=== PATIENT | female | born 1935 | race Caucasian/White ===

== ENCOUNTER 2019-01-19 08:44 | Emergency (ER) | payer MEDICARE ==
[2019-01-19 09:40] VITALS: BP 126/63
--- NOTE | 2019-01-19 10:37 | UC ---
General HPI - HPI Summary HPI Summary: pt c/o pain in her L shoulder joint on and off for the past 3 months. last pm she had trouble finding comfort. she did completely take down [employer] decorations and redecorated "the entire home for [facility] yesterday". it resolves with rest but reoccurs with any movement of the shoulder. she denies any injury. she has no associated cp, nausea, sweating or sob and there is no exertional component. pt states she does 15-20 minutes on a treadmill and 10-15 minutes on a stationary bike daily with no cp, sob, sweating or shoulder pain. - History of Current Complaint Chief Complaint: UCUpperExtremity Stated Complaint: LEFT SHOULDER PAIN Time Seen by Provider: 01/19/19 10:30 Hx Obtained From: Patient Pain Intensity: 2 Associated Signs & Symptoms: Negative: Abdominal Pain, Chest Pain, Diaphoresis, Nausea, Palpitations, SOB - Allergy/Home Medications Allergies/Adverse Reactions: Allergies Allergy/AdvReac Type Severity Reaction Status Date / Time amoxicillin Allergy Rash Verified 01/19/19 09:31 clindamycin Allergy Rash and Verified 01/19/19 09:31 esophagitis nitrofurantoin Allergy Rash, Verified 01/19/19 09:31 fluid retention sulfamethoxazole Allergy Rash Verified 01/19/19 09:31 [From Bactrim] trimethoprim [From Bactrim] Allergy Rash Verified 01/19/19 09:31 Home Medications: Home Medications Naproxen Sodium [Aleve] 220 mg PO DAILY PRN 01/19/19 [History Confirmed 01/19/19 ] PMH/Surg Hx/FS Hx/Imm Hx Cardiovascular History: Hypertension - Surgical History Surgical History: Yes Surgery Procedure, Year, and Place: hysterectomy, cataracts, detached retina repair - Family History Known Family History: Positive: Non-Contributory - Social History Occupation: Retired Alcohol Use: None Substance Use Type: None Smoking Status (MU): Former Smoker Amount Used/How Often: 3 per day When Did the Patient Quit Smoking/Using Tobacco: 2016 - Immunization History Vaccination Up to Date: Yes Review of Systems All Other Systems Reviewed And Are Negative: Yes Constitutional: Negative: Fever Respiratory: Negative: Shortness Of Breath, Cough Cardiovascular: Negative: Palpitations, Chest Pain Gastrointestinal: Negative: Nausea Musculoskeletal: Positive: Other: - L shoulder pain Physical Exam Triage Information Reviewed: Yes Appearance: Well-Appearing Vital Signs: Initial Vital Signs Temp 98 F 01/19/19 09:35 Pulse 72 01/19/19 09:35 Resp 18 01/19/19 09:35 BP 126/63 01/19/19 09:35 Pulse Ox 97 01/19/19 09:35 Vital Signs Reviewed: Yes Eyes: Positive: Conjunctiva Clear Neck: Positive: Supple, Nontender, No Lymphadenopathy Respiratory: Positive: Lungs clear, Normal breath sounds Cardiovascular: Positive: RRR, No Murmur, Pulses Normal Abdomen Description: Positive: Nontender, Soft. Negative: Pulsatile Mass Bowel Sounds: Positive: Present Musculoskeletal: Positive: Other: - Neck/back: kyphosis. Spine is non tender. BUE's: no rashes. no gross deformity, swelling or discoloration. shoulders are non tender to palpation. R shoulder has full rom. L shoulder, passive rom is limited to about 50% in all directions due to pain and active rom is the same but has ever less rom. the pain is c/w pt's cc. Neurological: Positive: Alert Psychological: Positive: Age Appropriate Behavior Skin Exam: Normal Diagnostics - Radiology No standard instances Radiology Interpretation Completed By: Radiologist - R shoulder=IMPRESSION: OSTEOARTHRITIS. NO ACUTE OSSEOUS INJURY. IF SYMPTOMS PERSIST, RECOMMEND REPEAT IMAGING. Course/Dx - Course Course Of Treatment: pt requesting a local [facility] business law professor thus Contact information with Dr Mejia was given. - Differential Dx - Multi-Symptom Differential Diagnoses: Other - no concern for fx, septic joint or dislocation. OA on xray plus tendinopathy, rotator cuff and frozen shoulder are in the differential as is strain. no lesions seen. will refer to PT and orthopedics. - Diagnoses Provider Diagnosis: Shoulder pain, right Discharge - Sign-Out/Discharge Documenting (check all that apply): Patient Departure All imaging exams completed and their final reports reviewed: Yes - Discharge Plan Condition: Stable Disposition: HOME Patient Education Materials: Shoulder Pain (ED) Referrals: Moy Fernandez MD [Medical Doctor] - As Soon As Possible Thien Mejia MD [Medical Doctor] - As Soon As Possible - Billing Disposition and Condition Condition: STABLE Disposition: Home - Attestation Statements Provider Attestation: Per institutional requirements, I have reviewed the chart, however, I was not consulted specifically or made aware of this patient by the midlevel provider. I did not personally evaluate, interact with , or disposition this patient.
== END 2019-01-19 11:34 | disposition home or self-care (01) ==
LOC: UCCORT 08:44
DX: M25.512 Pain in left shoulder (principal); M19.012 Primary osteoarthritis, left shoulder; M40.204 Unspecified kyphosis, thoracic region; M40.202 Unspecified kyphosis, cervical region; I21.3 ST elevation (STEMI) myocardial infarction of unspecified site; I10 Essential (primary) hypertension; Z88.1 Allergy status to other antibiotic agents; Z88.0 Allergy status to penicillin; Z88.2 Allergy status to sulfonamides; Z87.891 Personal history of nicotine dependence
CPT/HCPCS: 93005; 99211; G0463